=== PATIENT | female | born 1995 | race Caucasian/White ===

== ENCOUNTER 2017-05-04 11:52 | Emergency (ER) | payer BC ==
--- NOTE | 2017-05-04 11:59 | ER Report ---
History and Physical Time Seen By MD: 11:59 HPI/ROS CHIEF COMPLAINT: Bumps on left side of neck HISTORY OF PRESENT ILLNESS: This is a 21-year-old female who presents to the emergency department for left-sided neck pain. Patient states that about one month ago she noticed she had some "bumps" on the left side of her neck in about a week later she had wisdom teeth extraction on the left side, was given amoxicillin took the full course. Has still had the left-sided neck pain and bumps to the left side of her neck, states that last night the left side of her neck was so uncomfortable she had has some may help lift her head off the pillow and decided come in today for further evaluation. Patient denies fevers, aches, chills, nausea, vomiting, diarrhea denies sore throat at this time. Denies C-spine discomfort. Denies nuchal pain. Patient states she has had mono in the past. REVIEW OF SYSTEMS: Respiratory: No cough, no dyspnea. Cardiovascular: No chest pain, no palpitations. Gastrointestinal: No vomiting, no abdominal pain. Musculoskeletal: As above. Allergies: Uncoded Allergies: sulfadrugs (Allergy, Intermediate, 05/04/17) Home Meds Active Scripts Cyclobenzaprine Hcl (CYCLOBENZAPRINE HCL) 10 Mg Tablet, 5-10 MG PO TID Y for MUSCLE SPASMS, #9 TAB Prov:DEVIN SPRAGUE [facility] 05/04/17 Meloxicam (MOBIC) 7.5 Mg Tablet, 7.5 MG PO QDAY Y for prn, #20 TAB Prov:DEVIN SPRAGUE [facility] 05/04/17 Past Medical/Surgical History Patient has a past medical and surgical history of strep throat, mononucleosis, wisdom teeth extraction, sinus surgery with multiple polyps removed. Reviewed Nurses Notes: Yes Constitutional Vital Sign - Last 24 Hours 05/04/17 05/04/17 05/04/17 05/04/17 11:52 11:55 11:57 12:22 Temp 97.5 Pulse ??? 76 65 Resp 16 B/P (MAP) 137/105 (116) 137/105 Pulse Ox 98 96 O2 Delivery Room Air 1/13/18 1/13/18 1/13/18 1/13/18 12:37 12:42 13:12 13:13 Pulse ? 66 Resp 16 B/P (MAP) 103/61 (75) 103/61 (75) Pulse Ox 95 O2 Delivery Room Air 05/04/17 13:20 Temp 98.0 Physical Exam General Appearance: The patient is alert, has no immediate need for airway protection and no current signs of toxicity. Eyes: Pupils equal and round no injection. Throat: No tonsillar hypertrophy, no erythema, moist mucous membranes. No edema. Respiratory: Chest is non tender, lungs are clear to auscultation. Cardiac: regular rate and rhythm, no murmurs, clicks or rubs. Gastrointestinal: Abdomen is soft and non tender, no masses, bowel sounds normal. No appreciable splenomegaly. Musculoskeletal: Neck: Neck is supple and non tender. Mild left-sided anterior cervical chain lymphadenopathy. Extremities have full range of motion and are non tender. Skin: No rashes or lesions. DIFFERENTIAL DIAGNOSIS: After history and physical exam differential diagnosis was considered for strep throat, URI, mononucleosis, lymphoma. Medical Decision Making Data Points Result Diagram: 05/04/17 1220 05/04/17 1220 Laboratory Hematology Test 05/04/17 12:20 05/04/17 12:33 Red Blood Count 4.56 M/uL (4.17-5.56) Mean Corpuscular Volume 85.7 fL (80.0-96.0) Mean Corpuscular Hemoglobin 30.3 pg (26.0-33.0) Mean Corpuscular Hemoglobin Concent 35.4 g/dL (32.0-36.0) Red Cell Distribution Width 13.0 % (11.5-14.5) Mean Platelet Volume 7.6 fL (7.2-11.1) Neutrophils (%) (Auto) 61.5 % (39.4-72.5) Lymphocytes (%) (Auto) 27.8 % (17.6-49.6) Monocytes (%) (Auto) 5.9 % (4.1-12.4) Eosinophils (%) (Auto) 3.5 % (0.4-6.7) Basophils (%) (Auto) 1.3 % (0.3-1.4) Nucleated RBC Relative Count (auto) 0.0 /100WBC Neutrophils # (Auto) 3.5 K/uL (2.0-7.4) Lymphocytes # (Auto) 1.6 K/uL (1.3-3.6) Monocytes # (Auto) 0.3 K/uL (0.3-1.0) Eosinophils # (Auto) 0.2 K/uL (0.0-0.5) Basophils # (Auto) 0.1 K/uL (0.0-0.1) Nucleated RBC Absolute Count (auto) 0.00 K/uL Sodium Level 140 mmol/L (137-145) Potassium Level 4.1 mmol/L (3.5-5.0) Chloride Level 106 mmol/L (98-107) Carbon Dioxide Level 26 mmol/L (22-31) Blood Urea Nitrogen 11 mg/dl (7-18) Creatinine 0.70 mg/dl (0.52-1.04) Glomerular Filtration Rate Calc > 60.0 Random Glucose 110 mg/dl (75-110) Calcium Level 9.3 mg/dl (8.4-10.2) Total Bilirubin 0.6 mg/dl (0.2-1.3) Aspartate Amino Transf (AST/SGOT) 29 U/L (0-35) Alanine Aminotransferase (ALT/SGPT) 47 U/L (0-56) Alkaline Phosphatase 48 U/L (0-126) Total Protein 7.0 gm/dl (6.3-8.2) Albumin 4.0 g/dl (3.5-5.0) Group A Streptococcus Screen Negative (NEGATIVE) Urine Color Yellow Urine Clarity Clear Urine pH 7.0 pH (4.8-9.5) Urine Specific Reeders 1.018 Urine Protein Negative mg/dL (NEGATIVE) Urine Glucose (UA) Negative mg/dL (NEGATIVE) Urine Ketones Negative mg/dL (NEGATIVE) Urine Blood Negative (NEGATIVE) Urine Nitrite Negative (NEGATIVE) Urine Bilirubin Negative (NEGATIVE) Urine Urobilinogen Negative mg/dL (0.2-1.9) Urine Leukocyte Esterase Negative (NEGATIVE) Urine RBC <1 /HPF (0-2/HPF) Urine WBC 1 /HPF (0-5/HPF) Urine Squamous Epithelial Cells Many /LPF (</=FEW) Urine Bacteria Negative /HPF (NONE-FEW) Urine Mucus Few /HPF (NONE-FEW) Chemistry Test 05/04/17 12:20 1/13/18 12:33 White Blood Count 5.7 k/uL (4.5-11.0) Red Blood Count 4.56 M/uL (4.17-5.56) Hemoglobin 13.8 g/dL (12.0-16.0) Hematocrit 39.1 % (34.0-47.0) Mean Corpuscular Volume 85.7 fL (80.0-96.0) Mean Corpuscular Hemoglobin 30.3 pg (26.0-33.0) Mean Corpuscular Hemoglobin Concent 35.4 g/dL (32.0-36.0) Red Cell Distribution Width 13.0 % (11.5-14.5) Platelet Count 249 K/uL (150-450) Mean Platelet Volume 7.6 fL (7.2-11.1) Neutrophils (%) (Auto) 61.5 % (39.4-72.5) Lymphocytes (%) (Auto) 27.8 % (17.6-49.6) Monocytes (%) (Auto) 5.9 % (4.1-12.4) Eosinophils (%) (Auto) 3.5 % (0.4-6.7) Basophils (%) (Auto) 1.3 % (0.3-1.4) Nucleated RBC Relative Count (auto) 0.0 /100WBC Neutrophils # (Auto) 3.5 K/uL (2.0-7.4) Lymphocytes # (Auto) 1.6 K/uL (1.3-3.6) Monocytes # (Auto) 0.3 K/uL (0.3-1.0) Eosinophils # (Auto) 0.2 K/uL (0.0-0.5) Basophils # (Auto) 0.1 K/uL (0.0-0.1) Nucleated RBC Absolute Count (auto) 0.00 K/uL Glomerular Filtration Rate Calc > 60.0 Calcium Level 9.3 mg/dl (8.4-10.2) Total Bilirubin 0.6 mg/dl (0.2-1.3) Aspartate Amino Transf (AST/SGOT) 29 U/L (0-35) Alanine Aminotransferase (ALT/SGPT) 47 U/L (0-56) Alkaline Phosphatase 48 U/L (0-126) Total Protein 7.0 gm/dl (6.3-8.2) Albumin 4.0 g/dl (3.5-5.0) Group A Streptococcus Screen Negative (NEGATIVE) Urine Color Yellow Urine Clarity Clear Urine pH 7.0 pH (4.8-9.5) Urine Specific Reeders 1.018 Urine Protein Negative mg/dL (NEGATIVE) Urine Glucose (UA) Negative mg/dL (NEGATIVE) Urine Ketones Negative mg/dL (NEGATIVE) Urine Blood Negative (NEGATIVE) Urine Nitrite Negative (NEGATIVE) Urine Bilirubin Negative (NEGATIVE) Urine Urobilinogen Negative mg/dL (0.2-1.9) Urine Leukocyte Esterase Negative (NEGATIVE) Urine RBC <1 /HPF (0-2/HPF) Urine WBC 1 /HPF (0-5/HPF) Urine Squamous Epithelial Cells Many /LPF (</=FEW) Urine Bacteria Negative /HPF (NONE-FEW) Urine Mucus Few /HPF (NONE-FEW) Urinalysis Test 05/04/17 12:33 Urine Color Yellow Urine Clarity Clear Urine pH 7.0 pH (4.8-9.5) Urine Specific Reeders 1.018 Urine Protein Negative mg/dL (NEGATIVE) Urine Glucose (UA) Negative mg/dL (NEGATIVE) Urine Ketones Negative mg/dL (NEGATIVE) Urine Blood Negative (NEGATIVE) Urine Nitrite Negative (NEGATIVE) Urine Bilirubin Negative (NEGATIVE) Urine Urobilinogen Negative mg/dL (0.2-1.9) Urine Leukocyte Esterase Negative (NEGATIVE) Urine RBC <1 /HPF (0-2/HPF) Urine WBC 1 /HPF (0-5/HPF) Urine Squamous Epithelial Cells Many /LPF (</=FEW) Urine Bacteria Negative /HPF (NONE-FEW) Urine Mucus Few /HPF (NONE-FEW) ED Course/Re-evaluation ED Course She was admitted to room. History physical were obtained. Differential diagnoses were considered. A CBC, CMP and UA were obtained. Rapid strep was negative. The lab studies were unremarkable. Labs were reviewed with the patient , I did tell her that I don't have a definitive explanation is why she has the two lumps on the side of her neck, therefore, she was encouraged to follow up next week with Dr. Ray, ENT specialist. The patient was also given a prescription for Mobic and Flexeril. The patient had no questions or concerns at this time and was discharged home. Decision to Disposition Date: May 04, 2017 Decision to Disposition Time: 12:49 Depart Departure Latest Vital Signs Vital Signs Date Time Temp Pulse Resp B/P (MAP) Pulse Ox O2 Delivery O2 Flow Rate FiO2 05/04/17 13:20 98.0 05/04/17 13:13 66 16 103/61 (75) 95 Room Air Impression: Primary Impression: Neck pain on left side Condition: Improved Disposition: HOME OR SELF-CARE Referrals: OG RAY JR, MD New Scripts Cyclobenzaprine Hcl (CYCLOBENZAPRINE HCL) 10 Mg Tablet 5-10 MG PO TID Y for MUSCLE SPASMS, #9 TAB Prov: DEVIN SPRAGUE [facility] 05/04/17 Meloxicam (MOBIC) 7.5 Mg Tablet 7.5 MG PO QDAY Y for prn, #20 TAB Prov: DEVIN SPRAGUE [facility] 05/04/17 Patient Instructions: Acute Neck Pain (ED) Additional Instructions: Drink plenty of fluids. Get plenty of rest. Take medications as indicated. Follow-up with Dr. Ray next week or further evaluation. May return to the emergency department for any other concerns or worsening symptoms. DEVIN SPRAGUE [facility] May 04, 2017 11:59
[2017-05-04 12:29] LABS: PLATELET COUNT, AUTOMATED 249 K/uL (150-450)
[2017-05-04] MEDS ORDERED: MELO-149 PO (12:54)
[2017-05-04] MEDS ORDERED: CYCL10TA29 PO (12:54)
[2017-05-04 13:13] VITALS: BP 103/61
== END 2017-05-04 13:22 | disposition home or self-care (01) ==
LOC: ER 11:57
DX: M54.2 Cervicalgia (principal)
CPT/HCPCS: 36415; 81001; 82040; 82247; 82310; 82374; 82435; 82565; 82947; 84075; 84132; 84155; 84295; 84450; 84460; 84520; 85025; 87081; 87880; 99282

== ENCOUNTER 2018-08-17 11:54 | Emergency (ER) | payer BC ==
[~2018-08-17 11:54] MED LIST: CYCL10TA29 PO; MELO-149 PO
[2018-08-17] MEDS ORDERED: ANAPHYLAXIS KIT 1 EA ONE (11:57)
[2018-08-17] MEDS ORDERED: NS(*) 0.9% 1000 ML BAG 1,000 ML IV ONE (12:05)
[2018-08-17] MEDS ORDERED: ALBUTEROL/IPRATROPIUM 3 ML NEB NEB ONE (12:05)
[2018-08-17] MEDS ORDERED: EPINEPHrine 0.3 MG SYR IM ONLY ONE (12:05)
[2018-08-17] MEDS ORDERED: diphenhydrAMINE 50 MG/ML VIAL IVP ONE (12:05)
[2018-08-17] MEDS ORDERED: FAMOTIDINE(*) 20MG/50ML PREMIX 50 ML IVPB ONE (12:05)
[2018-08-17] MEDS ORDERED: methylPREDNIS SUCC 125 MG/2ML IVP ONE (12:05)
[2018-08-17] MEDS ORDERED: DEXT20TA6 (12:07)
--- NOTE | 2018-08-17 12:20 | ER Report ---
History and Physical Time Seen By MD: 12:05 Hx. of Stated Complaint: allergic reaction HPI/ROS CHIEF COMPLAINT: Allergic reaction HISTORY OF PRESENT ILLNESS: This is a 23-year-old female presents to emergency department for an allergic reaction. Patient states that she started on antibiotics about a week ago, stopped taking them for about 2 days, resumed taking them today, approximately 15-30 minutes after taking the antibiotics began to feel flushed, felt as though her throat was closing and having some shortness of breath. No nausea or vomiting. Denies chest pain. Flushed face. No headaches or visual changes. REVIEW OF SYSTEMS: Constitutional: No fever, no chills. Eyes: No discharge. ENT: As above. Cardiovascular: No chest pain, no palpitations. Respiratory: As above. Gastrointestinal: No abdominal pain, no vomiting. Genitourinary: No hematuria. Musculoskeletal: No back pain. Skin: As above. Neurological: No headache. Allergies: Uncoded Allergies: sulfadrugs (Allergy, Intermediate, 05/04/17) Home Meds Active Scripts Epinephrine (EPIPEN 2-JULIO) 0.3 Mg/0.3 Ml Pen.injctr, 0.3 MG IM PRN, #1 PACK Prov:DEVIN SPRAGUE [facility] 08/17/18 Prednisone (PREDNISONE) 20 Mg Tablet, 20 MG PO BID, #10 TAB Prov:DEVIN SPRAGUE [facility] 08/17/18 Reported Medications Dextroamphetamine Sulfate (Zenzedi) 20 Mg Tablet, DAILY 08/17/18 Discontinued Scripts Cyclobenzaprine Hcl (CYCLOBENZAPRINE HCL) 10 Mg Tablet, 5-10 MG PO TID PRN for MUSCLE SPASMS, #9 TAB Prov:DEVIN SPRAGUE [facility] 05/04/17 Meloxicam (MOBIC) 7.5 Mg Tablet, 7.5 MG PO QDAY PRN for prn, #20 TAB Prov:DEVIN SPRAGUE [facility] 05/04/17 Past Medical/Surgical History The patient has a past medical and surgical history of strep throat, mononucleosis, [place] teeth extraction, tonsillectomy. Reviewed Nurses Notes: Yes Constitutional Vital Sign - Last 24 Hours 08/17/18 08/17/18 08/17/18 08/17/18 11:57 12:00 12:01 12:18 Temp 98.6 Pulse 110 Resp 20 B/P (MAP) 142/90 (107) 133/100 (111) 133/100 Pulse Ox 91 96 O2 Delivery Room Air Room Air 08/17/18 08/17/18 08/17/18 08/17/18 12:18 12:24 12:26 12:30 Pulse 89 86 90 Resp 18 18 B/P (MAP) 138/73 (94) Pulse Ox 97 08/17/18 08/17/18 08/17/18 08/17/18 12:54 13:00 13:24 13:30 Pulse 106 96 B/P (MAP) 124/100 (108) 111/71 (84) Pulse Ox 94 Physical Exam General Appearance: The patient is alert, has no immediate need for airway protection and no signs of toxicity. Eyes: Pupils equal and round no pallor or injection. ENT, Mouth: Mucous membranes are moist. Erythema to the posterior oropharynx. Respiratory: There are no retractions, mild end expiratory wheezing in the right upper lobe otherwise clear throughout. Cardiovascular: Regular rate and rhythm, no murmurs, clicks or rubs. Gastrointestinal: Abdomen is soft and non tender, no masses, bowel sounds normal. Neurological: Alert and oriented 4. Moving all extremities. Following all commands. No focal neurodeficits. Skin: Flushed skin throughout. Fullness noted to the lips. Musculoskeletal: Neck is supple non tender. Extremities are nontender, nonswollen and have full range of motion. DIFFERENTIAL DIAGNOSIS: After history and physical exam differential diagnosis was considered for allergic reaction, anaphylaxis. Medical Decision Making ED Course/Re-evaluation Clinical Indication for ER IV: Hydration, IV Access ED Course The patient was admitted to room. A history of physical were obtained. Differential diagnoses were considered. This patient states she is having some wheezing and feels as though her throat is itchy and closing, patient was given epinephrine IM, IV was started. A 1 L normal saline bolus was given. 125 mg IV Medrol, 20 mg IV famotidine, 25 mg IV Benadryl were given. Patient was monitored for probably 2 hours, had no rebound effects, patient states she is feeling significantly better she's no longer flushed, there is no fullness noted to her lips. Patient was given a prescription for prednisone and EpiPen's. The patient was instructed to use epi-pens should this happen again, patient expressed under standing. She was also instructed to not take the antibiotics that she was taking for her sinus infection. She expressed understanding and was discharged home. As she was on the end of the antibiotic course feeling better, I did not initiate antibiotic therapy. I also recommended following up with Dr. Ray for reevaluation and allergy testing. Decision to Disposition Date: Aug 17, 2018 Decision to Disposition Time: 13:29 Depart Departure Latest Vital Signs Vital Signs Date Time Temp Pulse Resp B/P (MAP) Pulse Ox O2 Delivery O2 Flow Rate FiO2 08/17/18 13:30 111/71 (84) 08/17/18 13:24 96 08/17/18 12:54 94 08/17/18 12:26 18 08/17/18 12:18 Room Air 08/17/18 12:01 98.6 Impression: Primary Impression: Allergic reaction to drug Condition: Improved Disposition: HOME OR SELF-CARE Referrals: OG RAY JR, MD New Scripts Epinephrine (EPIPEN 2-JULIO) 0.3 Mg/0.3 Ml Pen.injctr 0.3 MG IM PRN, #1 PACK Prov: DEVIN SPRAGUE 08/17/18 Prednisone (PREDNISONE) 20 Mg Tablet 20 MG PO BID, #10 TAB Prov: DEVIN SPRAGUE[facility] 08/17/18 Patient Instructions: Anaphylaxis (ED), General Allergic Reaction (ED) Additional Instructions: Stop taking the antibiotics that were prescribed. As this was nearing the end of your course of antibiotics, I do not feel that we need to add any additional antibiotics at this time. Please follow-up with [facility] next week for reevaluation. Please contact Dr. Ray for recurrent sinus infections as well as allergy testing. Please take the medications as prescribed. You can also take Benadryl should you have allergic reaction symptoms. Drink plenty of water. Get plenty of rest. Return to the ER for any other concerns or worsening symptoms. Problem Qualifiers Primary Impression: Allergic reaction to drug Encounter type: initial encounter Qualified Codes: T78.40XA - Allergy, un specified, initial encounter DEVIN SPRAGUE[facility] Aug 17, 2018 12:20
[2018-08-17 13:30] VITALS: BP 111/71
[2018-08-17] MEDS ORDERED: EPIN0.3P15 IM (13:30)
[2018-08-17] MEDS ORDERED: PRED20TA6 PO (13:30)
== END 2018-08-17 13:45 | disposition home or self-care (01) ==
LOC: ER 12:05
DX: T50.905A Adverse effect of unspecified drugs, medicaments and biological substances, initial encounter (principal)
CPT/HCPCS: 94640; 96365; 96372; 96375; 99284; J0171; J1200; J2930; J7030; J7620